=== PATIENT | female | born 1950 | race Caucasian/White ===

== ENCOUNTER 2017-03-13 06:37 | Inpatient (IN) | payer MEDICARE ==
[~2017-03-13] VITALS: Ht 167.6 cm; Wt 52.6 kg
[~2017-03-13 06:37] MED LIST: ALEN70TA3 PO; TEMA15CA PO
--- NOTE | 2017-03-13 06:45 | NUR ---
PATIENT BIB FROM HOME FOR NAUSEA/VOMITING. PT HAD BREAST RECONSTRUCTION SURGERY ON WEDNESDAY. HAS HAD NO BM SINCE THEN.
--- NOTE | 2017-03-13 06:50 | NUR ---
DR. JIANG AT BEDSIDE FOR MSE.
[2017-03-13] MEDS ORDERED: METOCLOPRAMIDE HCL 10 MG/2 ML VIAL IV ONE (07:15)
[2017-03-13] MEDS ORDERED: KETOROLAC TROMETHAMINE 15 MG INJ IV ONE (07:15)
[2017-03-13] MEDS ORDERED: METOCLOPRAMIDE HCL 10 MG/2 ML VIAL ONE (07:23)
[2017-03-13] MEDS ORDERED: KETOROLAC TROMETHAMINE 15 MG INJ ONE ×2 (07:23→10:17)
[2017-03-13] MEDS ORDERED: ONDANSETRON IV *ER 4 MG/2 ML VIAL IV ONE (07:30)
[2017-03-13] MEDS ORDERED: IV NORMAL SALINE 1000 ML BAG IV ONE (07:30)
[2017-03-13 07:40] LABS: BASOPHILS % (AUTO) 0.5 % (0.0-2.0); EOSINOPHILS # (AUTO) 0.1 K/uL (0.0-0.7); EOSINOPHILS % (AUTO) 0.8 % (0.0-7.0); HEMATOCRIT 37.2 % (31.2-41.9); HEMOGLOBIN 12.8 g/dL (10.9-14.3); LYMPHOCYTES # (AUTO) 0.8 K/uL (20.0-40.0); LYMPHOCYTES % (AUTO) 9.7 % (20.5-51.5); MEAN CORPUSCULAR HGB CONC 34 g/dL (32.3-35.6); MEAN CORPUSCULAR VOLUME 93.2 fL (75.5-95.3); MONOCYTES # (AUTO) 0.4 K/uL (2.0-10.0); MONOCYTES % (AUTO) 4.5 % (0.0-11.0); NEUTROPHILS # (AUTO) 6.7 K/uL (1.8-8.9); NEUTROPHILS % (AUTO) 84.5 % (38.5-71.5); PLATELET COUNT (AUTO) 240 K/uL (179-408); RED BLOOD CELL COUNT(AUTO) 3.99 MIL/uL (3.63-4.92); WHITE BLOOD COUNT (AUTO) 7.9 K/uL (3.8-11.8)
[2017-03-13] MEDS ORDERED: ONDANSETRON 4 MG/2 ML VIAL ONE (07:44)
[2017-03-13 08:00] LABS: CREATININE 0.7 mg/dL (0.6-1.3); POTASSIUM 3.9 mmol/L (3.5-5.1)
[2017-03-13 08:06] LABS: BILIRUBIN,DIRECT 0.1 mg/dL (0.0-0.2); BILIRUBIN,TOTAL 0.5 mg/dL (0.2-1.0); TOTAL PROTEIN, SERUM 6.4 g/dL (6.4-8.2)
[2017-03-13] MEDS ORDERED: IV NORMAL SALINE 250 ML IV ONE (08:21)
[2017-03-13] MEDS ORDERED: IOHEXOL 300MG/ML 100 ML INFUS..BTL ONE (08:21)
[2017-03-13] MEDS ORDERED: MORPHINE SULFATE 2 MG/1 ML DISP.SYRIN IV PRN (10:00)
[2017-03-13] MEDS ORDERED: ACETAMINOPHEN 325 MG TABLET PO PRN (10:00)
[2017-03-13] MEDS ORDERED: GLYCERIN ADULT RECTAL SUPP EACH RC ONE (10:00)
[2017-03-13] MEDS ORDERED: MAGNESIUM HYDROXIDE 30 ML LIQUID UDC PO PRN (10:00)
[2017-03-13] MEDS ORDERED: LEVOFLOXACIN 500 MG/D5W 500 MG in PREMIXED 1 EACH IV SCH ×2 (10:00→11:21)
[2017-03-13] MEDS ORDERED: ONDANSETRON 4 MG/2 ML VIAL IV PRN (10:00)
[2017-03-13] MEDS ORDERED: METRONIDAZOLE 500 MG/NS 100ML 500 MG in PREMIXED 1 EACH IV SCH (10:00)
[2017-03-13] MEDS ORDERED: BISACODYL 10 MG SUPP.RECT RC PRN (10:00)
[2017-03-13] MEDS ORDERED: FLEET ENEMA 133 ML BOTTLE RC PRN (10:00)
[2017-03-13] MEDS ORDERED: MAGNESIUM CITRATE 296 ML BOTTLE PO ONE (10:00)
[2017-03-13] MEDS ORDERED: KETOROLAC TROMETHAMINE 15 MG INJ IVP ONE (10:15)
--- NOTE | 2017-03-13 10:15 | NUR ---
REPORT WAS GIVEN TO RN M/S FLOOR. PT WAS TRANSFERED TO M/S ROOM #[id number].
[2017-03-13] MEDS ORDERED: HYDROMORPHONE 2 MG/1 ML DISP.SYRIN IV PRN (11:15)
[2017-03-13] MEDS: METRONIDAZOLE 500 MG/NS 100ML 500 MG in PREMIXED 1 EACH IV SCH ×2 (11:20→16:08)
[2017-03-13 11:38] VITALS: BP 116/69
[2017-03-13 12:27] LABS: *BILIRUBIN,URIN NEGATIVE (NEGATIVE); *BLOOD, URINE NEGATIVE (NEGATIVE); *CLARITY,URINE CLEAR (CLEAR); *COLOR,URINE YELLOW (YELLOW); *KETONES,URINE 1+ (NEGATIVE); *PROTEIN,URINE NEGATIVE (NEGATIVE); *UROBILINOGEN,URINE 0.2 E.U./dl (NORMAL); LEUKOCYTE ESTERASE ,URINE NEGATIVE (NEGATIVE); NITRITE, URINE NEGATIVE (NEGATIVE); PH,URINE 5.5 (5.0-8.0); UGLUCOSE NEGATIVE (NEGATIVE)
[2017-03-13 12:39] LABS: BACTERIA,URINE NONE SEEN /HPF (NONE SEEN); RBC,URINE NONE SEEN /HPF (0-3); SQUAMOUS EPITHELIAL CELL,UR FEW /HPF (NONE SEEN); WBC,URINE 0-3 /HPF (0-3)
--- NOTE | 2017-03-13 14:00 | NUR ---
PT LEFT AMA. PT WAS UPSET THAT SHE WASNT GETTING HER STOOL OUT FAST ENOUGH. SHE EXPRESSED SHE WANTED TO LEAVE AND WASNT GOING TO WAIT TO SEE A DOCTOR. PT WAS ON THE UNIT FOR 3 HOURS FROM THE ER AND HAD 4 BOWEL MOVEMENTS. IV WAS REMOVED, ID BAND REMOVED, PT WOULDN'T WAIT FOR AMA PAPERWORK TO PRINT AND LEFT UNIT WITHOUT SIGNING OUT.
[2017-03-13] MEDS ORDERED: TEMAZEPAM 15 MG CAPSULE PO SCH (21:00)
[2017-03-14] MEDS ORDERED: DOCUSATE SODIUM 100 MG CAPSULE PO SCH (09:00)
== END 2017-03-13 14:45 | disposition left against medical advice (07) | DRG 392 ==
LOC: ER 06:39 → MED 10:04
PROVIDERS: ADMIT Internal Medicine; ATTEND Internal Medicine
DX: K59.00 Constipation, unspecified (principal); J90 Pleural effusion, not elsewhere classified; R18.8 Other ascites; E88.09 Other disorders of plasma-protein metabolism, not elsewhere classified; J44.9 Chronic obstructive pulmonary disease, unspecified; K52.89 Other specified noninfective gastroenteritis and colitis; Z82.3 Family history of stroke; Z98.890 Other specified postprocedural states; Z79.899 Other long term (current) drug therapy; Z87.01 Personal history of pneumonia (recurrent); M19.90 Unspecified osteoarthritis, unspecified site; R73.9 Hyperglycemia, unspecified
CPT/HCPCS: 36415; 70030-TC; 71010; 83690; 85025; 85730; 87077; 87086; 93005; A4217; A4663; J1885; J1956; J2405; J2765; J3490; J7030; J7050; Q9967

== ENCOUNTER 2019-05-31 19:24 | Emergency (ER) | payer MEDICARE ==
[~2019-05-31] VITALS: Ht 172.7 cm; Wt 54.9 kg
--- NOTE | 2019-05-31 19:50 | NUR ---
DR. DENNISON AT BEDSIDE FOR MSE.
[2019-05-31] MEDS ORDERED: ONDANSETRON ODT 4 MG TAB.RAPDIS SL ONE ×2 (20:00→21:15)
[2019-05-31] MEDS ORDERED: ONDANSETRON ODT 4 MG TAB.RAPDIS ONE ×2 (20:06→21:15)
[2019-05-31 20:18] LABS: BASOPHILS % (AUTO) 0.8 % (0.0-2.0); EOSINOPHILS # (AUTO) 0.1 K/uL (0.0-0.7); EOSINOPHILS % (AUTO) 2.5 % (0.0-7.0); HEMATOCRIT 39.6 % (31.2-41.9); HEMOGLOBIN 13.5 g/dL (10.9-14.3); LYMPHOCYTES # (AUTO) 0.7 K/uL (20.0-40.0); LYMPHOCYTES % (AUTO) 23.7 % (20.5-51.5); MEAN CORPUSCULAR HEMOGLOBIN 31.6 uug (24.7-32.8); MEAN CORPUSCULAR HGB CONC 34 g/dL (32.3-35.6); MEAN CORPUSCULAR VOLUME 92.9 fL (75.5-95.3); MONOCYTES # (AUTO) 0.5 K/uL (2.0-10.0); MONOCYTES % (AUTO) 17.2 % (0.0-11.0); NEUTROPHILS # (AUTO) 1.7 K/uL (1.8-8.9); NEUTROPHILS % (AUTO) 55.8 % (38.5-71.5); PLATELET COUNT (AUTO) 245 K/uL (179-408); RED BLOOD CELL COUNT(AUTO) 4.27 MIL/uL (3.63-4.92); WHITE BLOOD COUNT (AUTO) 3.1 K/uL (3.8-11.8)
[2019-05-31 20:27] LABS: CREATININE 0.9 mg/dL (0.6-1.3); POTASSIUM 4.8 mmol/L (3.5-5.1)
[2019-05-31 20:33] LABS: BILIRUBIN,DIRECT 0.1 mg/dL (0.0-0.2); BILIRUBIN,TOTAL 0.3 mg/dL (0.2-1.0); TOTAL PROTEIN, SERUM 6.9 g/dL (6.4-8.2)
[2019-05-31 20:42] LABS: BAND % (MANUAL) 9 % (0-10); EOSINOPHILS % (MANUAL) 1 % (0-8); LYMPHOCYTES % (MANUAL) 25 % (20-40); MONOCYTES % (MANUAL) 15 % (2-10); NEUTROPHILS % (MANUAL) 50 % (42-75)
[2019-05-31] MEDS ORDERED: IV NS 1000 ML 1,000 ML IV ONE (21:30)
--- NOTE | 2019-05-31 22:27 | NUR ---
Patient discharged to home in stable conditon. Written and verbal after care instructions given. Patient verbalizes understanding of instructions. PATIENT LEFT WITH STABLE GAIT.
[2019-05-31 22:28] VITALS: BP 143/75
== END 2019-05-31 22:28 | disposition home or self-care (01) ==
LOC: ER 19:26
DX: J32.9 Chronic sinusitis, unspecified (principal); R00.2 Palpitations
CPT/HCPCS: 36415; 70030-TC; 85025; 87400; 93005; A4663; J7030; Q0162

== ENCOUNTER 2021-06-16 14:38 | Emergency (ER) | payer MEDICARE ==
[~2021-06-16] VITALS: Ht 162.6 cm; Wt 52.2 kg
[~2021-06-16 14:38] MED LIST changes: -ALEN70TA3 PO
[2021-06-16] MEDS ORDERED: HYDROCODONE/APAP 5-325MG TABLET PO ONE (15:45)
[2021-06-16] MEDS ORDERED: HYDROCODONE/APAP 5-325MG TABLET ONE (15:54)
[2021-06-16] MEDS ORDERED: HYDR-3980 PO (15:59)
--- NOTE | 2021-06-16 16:30 | NUR ---
lucy will follow up with ortho. Patient discharged to home in stable condition. Written and verbal after care instructions given. Patient verbalizes understanding of instructions. Stressed follow up or return to ER for worsening s/s.pt with daughter will follow up with ortho.
[2021-06-16 16:31] VITALS: BP 121/79
== END 2021-06-16 16:32 | disposition home or self-care (01) ==
LOC: ER 14:38
DX: S92.355A Nondisplaced fracture of fifth metatarsal bone, left foot, initial encounter for closed fracture (principal); W01.0XXA Fall on same level from slipping, tripping and stumbling without subsequent striking against object, initial encounter; Y92.89 Other specified places as the place of occurrence of the external cause; Z91.011 Allergy to milk products
CPT/HCPCS: 73630; A4663

== ENCOUNTER 2023-06-05 13:38 | Emergency (ER) | payer MEDICARE ==
[~2023-06-05] VITALS: Ht 162.6 cm; Wt 52.2 kg
[~2023-06-05 13:38] MED LIST changes: +HYDR-3980 PO
[2023-06-05] MEDS ORDERED: TEMA30CA PO (14:16)
[2023-06-05] MEDS ORDERED: GABA300C PO (14:16)
[2023-06-05] MEDS ORDERED: VALA500T34 PO (14:16)
[2023-06-05] MEDS ORDERED: ACET1TAB23 PO (16:40)
[2023-06-05 17:07] VITALS: BP 126/72; O2SAT 99
== END 2023-06-05 17:14 | disposition home or self-care (01) ==
LOC: ER 13:42
DX: S62.611A Displaced fracture of proximal phalanx of left index finger, initial encounter for closed fracture (principal); S62.613A Displaced fracture of proximal phalanx of left middle finger, initial encounter for closed fracture; Z98.890 Other specified postprocedural states; Z79.899 Other long term (current) drug therapy; Z88.1 Allergy status to other antibiotic agents; W01.0XXA Fall on same level from slipping, tripping and stumbling without subsequent striking against object, initial encounter; Y93.89 Activity, other specified; Y92.89 Other specified places as the place of occurrence of the external cause; Y99.8 Other external cause status
CPT/HCPCS: 73130; A4606; A4663